=== PATIENT | female | born 1960 ===

== ENCOUNTER 2022-10-01 08:06 | Emergency (ER) | payer MEDICARE, MEDICAID, SELFPAY ==
--- NOTE | ~2022-10-01 | US_ITS ---
EXAMINATION: US ABDOMEN LIMITED CLINICAL INFORMATION: Abdominal pain. COMPARISON: The scan of the abdomen and pelvis from today. TECHNIQUE: Real-time imaging of the right upper quadrant abdominal viscera. FINDINGS: PANCREAS: Visualized portions unremarkable. LIVER: Mild diffuse increased echotexture without focal abnormality. GALLBLADDER: Unremarkable. COMMON BILE DUCT: Normal in caliber measuring 0.3 cm in diameter. RIGHT KIDNEY: 9.6 cm. Unremarkable. FREE FLUID: None. US/US abdomen limited IMPRESSION: Mild diffuse increased hepatic echotexture is nonspecific, but can be seen with mild steatosis. No other significant abnormality. Unremarkable gallbladder.
--- NOTE | ~2022-10-01 | CT_ITS ---
EXAMINATION: CT abdomen pelvis w IV con CLINICAL INFORMATION: Reason for Exam RUQ/epigastric pain COMPARISON: No prior CT available for comparison. TECHNIQUE: Multidetector volumetric imaging was performed from the superior aspect of the liver through the pubic symphysis 85 mL Omnipaque 350 injected Sagittal and coronal reformatted images were obtained on the technologist's workstation. This CT examination was performed using dose optimization techniques as appropriate, variously including the following: *Automated exposure control *Adjustment of mA and/or kV according to patient size (this includes techniques or standardized protocols for targeted exams where dose is matched to indication/reason for exam; i.e. extremities or head) *Use of iterative reconstruction technique DLP: 630 mGy-cm FINDINGS: LOWER THORAX: Included lung bases are clear. HEPATOBILIARY: No focal hepatic lesions. No biliary ductal dilatation. GALLBLADDER: There is a small gallstone, gallbladder otherwise unremarkable. SPLEEN: Spleen is normal in size. PANCREAS: No focal mass or ductal dilatation. STOMACH AND GASTROINTESTINAL TRACT: Stomach is grossly unremarkable. There is no bowel distention or thickening. No CT evidence of appendicitis. ADRENALS: No adrenal nodules. KIDNEYS/URETERS: Small simple cyst middle pole left kidney 1.2 cm, Bosniak class I, no follow-up is required, tiny hypodensity in the right renal cortex less than 5 mm, too small to characterize commonly found to be evolving cysts. Tiny calcific density in the left renal hilum could be a 3 mm nonobstructing stone versus vascular. There is no hydronephrosis, no evidence of renal obstruction. Ureters are normal in size on both sides. Perinephric fat are clear. URINARY BLADDER: Partially decompressed. PELVIC VISCERA: Unremarkable PERITONEUM: No free air or fluid. LYMPH NODES: No lymphadenopathy. VASCULAR:Abdominal aorta normal in size, no aneurysm found. BONES, ABDOMINAL WALL AND SOFT TISSUES: Age-appropriate changes of the spine and skeletal system, no destructive osteolytic or osteosclerotic bone lesion found CT/CT abdomen pelvis w IV con IMPRESSION: * No CT evidence of acute intra-abdominal process to explain patient's pain symptoms. * Tiny gallstones, CT scan has limited sensitivity evaluation of the gallbladder, if there is a clinical suspicion for possible cholecystitis, would recommend correlation with follow-up ultrasound or HIDA scan. * Tiny calcific density in the left renal hilum probably 3 mm nonobstructing stone versus vascular calcification.
[2022-10-01 08:15] VITALS: BP 179/85; PULSE 90; RESP 18; TEMP 36.9; O2SAT 98; BMI 29.5
--- NOTE | 2022-10-01 08:30 | ED_ITS ---
HPI - Abdominal Pain General Chief Complaint: Abdominal Pain Stated Complaint: Abd pain Time Seen by Provider: 10/01/22 08:16 Source: patient Mode of arrival: ambulatory Limitations: language barrier History of Present Illness HPI narrative: 62-year-old female past medical history of DM2, gastritis, fatty liver disease presents to the emergency department with complaints several months of right upper quadrant/epigastric pain radiating into the right flank with abdominal swelling and pain to palpation. She also reports dysuria, with bright yellow urine and no odor, and states she has not moved her bowels in 4 days, however; she endorses a history of chronic constipation and states she uses prune juice to a aid in bowel movements with good effect per patient. She states she last vomited 2 days ago with emesis described as undigested food, without any blood noted. States she has a history of acid reflux when she eats fatty foods and states she has been avoiding high fat foods to prevent symptoms. She was seen in the emergency department at [facility] on 09/09/22 for similar symptoms and states she had x-rays and an MRI of her abdomen. She was prescribed dicyclomine which she states has not aided in relieving her discomfort. She is unsure why she was prescribed this medication and is unsure of what diagnostic results were at [facility]. She has not taken any ecgm-iyi-[id number] medications for pain control this morning. She denies any melena, hematochezia, diarrhea, chest pain, shortness of breath, headaches, or vision changes. MD elicited complaint: abdominal pain Pertinent past history: constipation Onset (ago): week(s) ( ) Pain Consistency: constant Location: epigastric and RUQ Related Data Previous Rx's Medication Instructions Recorded naproxen 500 mg tablet,delayed 500 mg PO BID PRN pain #30 tabs 10/01/22 release Allergies Allergy/AdvReac Type Severity Reaction Status Date / Time No Known Allergies Allergy Verified 10/01/22 08:26 Review of Systems Review of Systems In addition to documented HPI above, the additional ROS was obtained: CONSTITUTIONAL: Denies fever, chills, weakness, fatigue, headache, night sweats, or weight loss EYES: Denies vision changes, eye pain, swelling, redness, foreign body, discharge ENT: Hearing normal. Denies sore throat, swallowing difficulty. congestion, ear pain, no hoarseness or CV: Denies chest pain. No edema, palpitations, or dyspnea on exertion RESP: Denies shortness of breath. Denies cough, wheezing, dyspnea. Denies smoke exposure GI: Denies nausea, vomiting, or diarrhea. No melena or hematochezia. : Denies irregular bleeding, urinary frequency, urinary incontinence/retention, urgency. Denies flank pain, hematuria MSK: Denies recent trauma, change in gait, myalgias, joint swelling or pain SKIN: Denies no lesions, rashes, or sores NEURO: Denies new numbness, tingling, dizziness, paresthesias or weakness. No loss of consciousness. Denies headache ENDOCRINE: Denies unexpected weight loss. Denies polyuria, polydipsia. No temperature intolerance HEME/ONC: Denies bleeding disorders, easy bruising, or lymphadenopathy PSYCH: Denies anxiety/panic, depression, SI/HI, or social issues. Yes all other systems are reviewed and are negative [facility] Past Medical History Attestation statement: The following information was validated with the patient. [facility] Narrative: Reviewed emergency department visit from [facility] on 09/09/2022. Patient presented with similar symptoms of abdominal pain worse with eating. VSS in ED per record. CBC and CMP unrevealing. Urinalysis negative for infection, EKG nonischemic, abdominal ultrasound showing fatty liver versus hepatocellular disease with no evidence cholelithiasis, acute cholecystitis, or biliary duct obstruction when compared to previous ultrasound done on 02/07/2022. CT abdomen pelvis with no acute abdominal or pelvic abnormality when compared to previous CT done on 02/16/2022. GI cocktail provided with viscous lidocaine and Maalox, and patient discharged with instructions to closely follow-up with PCP for repeat evaluation and further outpatient management. Referral provided to GI. Source: old records reviewed Social History Social History Alcohol intake: never Smoked in Last 30 Days: No Use of substances other than those prescribed or required for medical reasons: No Advance Directives: No Patient : No Physical Exam ED Vital Signs: Vital Signs - 24 hr 10/01/22 08:15 Temperature 98.4 F Pulse Rate 90 Respiratory Rate 18 Blood Pressure 179/85 H Pulse Oximetry 98 Oxygen Delivery Method Room Air BMI result Body Mass Index 29.5 Nursing notes and vital signs reviewed. GENERAL APPEARANCE: A&0 x 4, generally well appearing, no acute distress HENMT: Normal to inspection, atraumatic, face symmetrical. Normal external ears, nose, and oropharynx clear. EYE: PERRLA, EOM intact, structures appear normal NECK: Supple without lymphadenopathy. No stiffness or restricted ROM. CHEST: Normal to inspection HEART: Normal rate and regular rhythm, normal S1/S2, no M/R/G LUNGS: LS CTA, moving air well. Able to speak in complete sentences. No crackles, wheezes, or rhonchi auscultated ABDOMEN: Soft, nontender, nondistended, no guarding. Normal bowel sounds noted. BACK: No CVAT, no obvious deformity EXTREMITIES: Moving all extremities without difficulty. No cyanosis, clubbing, or edema. Normal capillary refill. NEUROLOGICAL: Alert and oriented, moving all 4 extremities with equal strength. CN not formally tested but appearing grossly intact. Observed to ambulate with normal gait. Cognition normal SKIN: Warm and dry without any lesions, rash, or visible sores PSYCH: Cooperative, normal affect, normal thought process Course Course Course Narrative: 0840: Request out to [facility] for pt's previous ED records for review. 0915: Mag level 1.4, plan for IV start and 2 gm mag replacement 0945: ED records for [facility] with diagnostics > 3 weeks ago, plan for repeat CT abd/pelvis for re-evaluation Medical Decision Making Medical Decision Making [facility] Narrative: 62-year-old female past medical history of fatty liver disease presents to the emergency department with complaints several weeks of right upper quadrant/ epigastric pain radiating into the right flank with abdominal swelling and pain to palpation. EKG normal sinus rhythm. Initial blood work significant for glucose 344 and magnesium 1.4 otherwise unremarkable. 2 g IV Mag given with repeat Mag 1.9. Repeat glucose 159. 5 mg p.o. oxycodone given with moderate relief of pain with follow-up dose of IV Toradol for continued complaints of pain with good effect. CT abdomen pelvis showing no evidence of acute intra- abdominal processes, small simple cyst in right kidney, and small gallstones with clinical suspicion for possible cholecystitis with recommendation of follow-up ultrasound. US consistent with hepatic steatosis. Patient is safe for discharge at this time with plan to manage discomfort with [id number]-[id number] naproxen, increased fluid intake, diet changes, and increased physical activity. HPI, PE, diagnostics, and plan discussed with patient and family with no unanswered questions at this time. Patient educated to return to the emergency department with new, worsening, or concerning emergent symptoms. Recommended to follow-up with her primary care provider for further treatment and management. *Refer to Course for additional information on consultations, diagnostic interpretation, consultations, emergency department stay, conversations with patient and family, shared decision making with patient, and more information on medical decision making* Lab Data MDM Lab Attestation statement: I reviewed the patient's lab results. 10/01/22 08:43 10/01/22 08:43 Labs: Lab Results 10/01/22 10/01/22 10/01/22 Range/Units 08:43 08:43 12:08 WBC 4.3 L (4.8-10.8) X10*3/uL RBC 4.25 (4.20-5.50) X10*6/uL Hgb 12.6 (12.0-16.0) g/dl Hct 37.2 (37.0-47.0) % MCV 87.5 (80.0-98.0) fL MCH 29.6 (27.0-33.0) pg MCHC 33.9 (31.0-35.0) g/dl RDW 12.2 (11.0-16.0) % Plt Count 230 (160-400) X10*3/uL MPV 10.3 (9.4-12.3) fL Immature Gran % (Auto) 0.2 (0.0-0.4) % Neut % (Auto) 64.1 (45-73) % Lymph % (Auto) 26.4 (20-40) % [place] % (Auto) 7.2 (2-11) % Eos % (Auto) 1.9 (0-4) % Baso % (Auto) 0.2 (0-2) % Lymph # (Auto) 1.1 L (1.2-4.9) X10*3/uL [place] # (Auto) 0.3 (0.1-1.2) X10*3/uL Eos # (Auto) 0.1 (0.0-0.4) X10*3/uL Baso # (Auto) 0.0 (0.0-0.2) X10*3/uL Abs Immat Gran (auto) 0.01 (0.00-0.03) X10*3/uL Absolute Neuts (auto) 2.8 (2.0-8.3) x10*3/uL Absolute Nucleated RBC 0.000 (0.0-0.012) X10*3/uL Nucleated RBC % (auto) 0.0 (0.0-0.2) /100WBC Sodium 139 (135-145) mmol/L Potassium 4.0 (3.3-5.1) mmol/L Chloride 100 (96-108) mmol/L Carbon Dioxide 27 (22-29) mmol/L Anion Gap 16 (12-20) BUN 15 (9-16) mg/dL Creatinine 0.76 (0.5-1.4) mg/dL Estim Creat Clear Calc 75.7 Estimated GFR > 60 POC Glucose 159 H (60-115) mg/dL Random Glucose 344 H (60-115) mg/dL Calcium 10.3 H (8.4-10.2) mg/dL Magnesium 1.4 L* (1.6-2.6) mg/dL Total Bilirubin 1.2 H (0.0-1.0) mg/dL AST 11 (5-31) U/L ALT 11 (0-31) U/L Alkaline Phosphatase 52 (39-117) U/L Total Protein 7.1 (6.5-8.0) g/dL Albumin 4.2 (3.5-5.0) g/dL Amylase 56 (28-100) U/L Lipase 49 (8-78) U/L 10/01/22 Range/Units 14:41 WBC (4.8-10.8) X10*3/uL RBC (4.20-5.50) X10*6/uL Hgb (12.0-16.0) g/dl Hct (37.0-47.0) % MCV (80.0-98.0) fL MCH (27.0-33.0) pg MCHC (31.0-35.0) g/dl RDW (11.0-16.0) % Plt Count (160-400) X10*3/uL MPV (9.4-12.3) fL Immature Gran % (Auto) (0.0-0.4) % Neut % (Auto) (45-73) % Lymph % (Auto) (20-40) % [place] % (Auto) (2-11) % Eos % (Auto) (0-4) % Baso % (Auto) (0-2) % Lymph # (Auto) (1.2-4.9) X10*3/uL [place] # (Auto) (0.1-1.2) X10*3/uL Eos # (Auto) (0.0-0.4) X10*3/uL Baso # (Auto) (0.0-0.2) X10*3/uL Abs Immat Gran (auto) (0.00-0.03) X10*3/uL Absolute Neuts (auto) (2.0-8.3) x10*3/uL Absolute Nucleated RBC (0.0-0.012) X10*3/uL Nucleated RBC % (auto) (0.0-0.2) /100WBC Sodium (135-145) mmol/L Potassium (3.3-5.1) mmol/L Chloride (96-108) mmol/L Carbon Dioxide (22-29) mmol/L Anion Gap (12-20) BUN (9-16) mg/dL Creatinine (0.5-1.4) mg/dL Estim Creat Clear Calc Estimated GFR POC Glucose (60-115) mg/dL Random Glucose (60-115) mg/dL Calcium (8.4-10.2) mg/dL Magnesium 1.9 (1.6-2.6) mg/dL Total Bilirubin (0.0-1.0) mg/dL AST (5-31) U/L ALT (0-31) U/L Alkaline Phosphatase (39-117) U/L Total Protein (6.5-8.0) g/dL Albumin (3.5-5.0) g/dL Amylase (28-100) U/L Lipase (8-78) U/L Independent Interpretation I performed an independent interpretation of an: EKG Interpretation: I have independently interpreted the EKG as NSR at 81 bpm, nonischemic with no previous EKG in system to compare Vent. Rate : 081 BPM ? ? Atrial Rate : 081 BPM ?? P-R Int : 142 ms? QRS Dur : 092 ms ? QT Int : 370 ms ? ? ? P-R-T Axes : 027 023 022 degrees ?? QTc Int : 429 ms ? Normal sinus rhythm Normal ECG No previous ECGs available Radiology Impression Discussion of test interpretation with radiology: I have reviewed the radiologist's reading. Radiologist Impression: Have independently reviewed the CT abdomen pelvis showing evidence gallstones with suspicion for cholecystitis with plan for follow-up ultrasound EXAMINATION: CT abdomen pelvis w IV con CLINICAL INFORMATION: Reason for Exam RUQ/epigastric pain COMPARISON: No prior CT available for comparison. TECHNIQUE: Multidetector volumetric imaging was performed from the superior aspect of the liver through the pubic symphysis 85 mL Omnipaque 350 injected Sagittal and coronal reformatted images were obtained on the technologist's workstation. ? This CT examination was performed using dose optimization techniques as appropriate, variously including the following: *Automated exposure control *Adjustment of mA and/or kV according to patient size (this includes techniques or standardized protocols for targeted exams where dose is matched to indication/reason for exam; i.e. extremities or head) *Use of iterative reconstruction technique DLP: 630 mGy-cm FINDINGS: LOWER THORAX: Included lung bases are clear. HEPATOBILIARY: No focal hepatic lesions. No biliary ductal dilatation. GALLBLADDER: There is a small gallstone, gallbladder otherwise unremarkable. SPLEEN: Spleen is normal in size. PANCREAS: No focal mass or ductal dilatation. STOMACH AND GASTROINTESTINAL TRACT: Stomach is grossly unremarkable. There is no bowel distention or thickening. No CT evidence of appendicitis. ADRENALS: No adrenal nodules. KIDNEYS/URETERS: Small simple cyst middle pole left kidney 1.2 cm, Bosniak class I, no follow-up is required, tiny hypodensity in the right renal cortex less than 5 mm, too small to characterize commonly found to be evolving cysts. Tiny calcific density in the left renal hilum could be a 3 mm nonobstructing stone versus vascular. There is no hydronephrosis, no evidence of renal obstruction. Ureters are normal in size on both sides. Perinephric fat are clear. URINARY BLADDER: Partially decompressed. PELVIC VISCERA: Unremarkable PERITONEUM: No free air or fluid. LYMPH NODES: No lymphadenopathy. VASCULAR:Abdominal aorta normal in size, no aneurysm found. BONES, ABDOMINAL WALL AND SOFT TISSUES: Age-appropriate changes of the spine and skeletal system, no destructive osteolytic or osteosclerotic bone lesion found CT/CT abdomen pelvis w IV con IMPRESSION: ? *? No CT evidence of acute intra-abdominal process to explain patient's pain symptoms. ? *? Tiny gallstones, CT scan has limited sensitivity evaluation of the gallbladder, if there is a clinical suspicion for possible cholecystitis, would recommend correlation with follow-up ultrasound or HIDA scan. ? *? Tiny calcific density in the left renal hilum probably 3 mm nonobstructing stone versus vascular calcification. ? Dictated By: Mikhail Graff MD Signed By: <Electronically signed by Mikhail Graff MD in [place]> 10/01/22 1315 DD/ 1206 TD/TT:? Senior Caregiver: I independently reviewed the ultrasound results could consistent with hepatic steatosis. EXAMINATION: US ABDOMEN LIMITED CLINICAL INFORMATION: Abdominal pain. COMPARISON: The scan of the abdomen and pelvis from today. TECHNIQUE: Real-time imaging of the right upper quadrant abdominal viscera. FINDINGS: PANCREAS: Visualized portions unremarkable. LIVER: Mild diffuse increased echotexture without focal abnormality. GALLBLADDER: Unremarkable. COMMON BILE DUCT: Normal in caliber measuring 0.3 cm in diameter. RIGHT KIDNEY: 9.6 cm. Unremarkable. FREE FLUID: None. US/US abdomen limited IMPRESSION: Mild diffuse increased hepatic echotexture is nonspecific, but can be seen with mild steatosis. No other significant abnormality. Unremarkable gallbladder. ? Dictated By: Prudencio Schmitz MD Signed By: <Electronically signed by Prudencio Schmitz MD in [place]> 10/01/22 1534 DD/ 1425 TD/TT:? Senior Caregiver: External Record Review External record reviewed: Outside ED record Medications Administered Discontinued Medications Generic Name Dose Route Start Last Admin Trade Name Freq PRN Reason Stop Dose Admin Al Hydroxide/Mg Hydroxide 15 ml 10/01/22 08:53 10/01/22 09:05 Magnesium Hydrox/Alum Hydrox 30 Ml Oral.Susp PO 10/01/22 08:54 15 ml ONCE ONE Administration Famotidine 20 mg 10/01/22 08:53 10/01/22 09:06 Famotidine 20 Mg Tablet PO 10/01/22 08:54 20 mg ONCE ONE Administration Magnesium Sulfate 2 gm in 50 mls @ 25 mls/hr 10/01/22 09:14 10/01/22 11:36 Magnesium Sulfate/H2o IV 10/01/22 11:13 Infused ONCE ONE Infusion Iohexol 100 ml 10/01/22 12:05 10/01/22 12:06 Iohexol 350 Mg/Ml 100 Ml Infus..Btl IV 10/01/22 12:06 85 ml ONCE ONE Administration Ketorolac Tromethamine 15 mg 10/01/22 14:07 10/01/22 14:15 Ketorolac Tromethamine 15 Mg/Ml Vial IVPUSH 10/01/22 14:08 15 mg ONCE ONE Administration Lidocaine HCl 15 ml 10/01/22 08:53 10/01/22 09:06 Lidocaine Hcl Viscous 2 % 15 Ml Solution MUCOUS MEM 10/01/22 08:54 15 ml ONCE ONE Administration Oxycodone HCl 5 mg 10/01/22 09:46 10/01/22 09:51 Oxycodone Hcl Immed Release 5 Mg Tablet PO 10/01/22 09:47 5 mg ONCE ONE Administration Discharge Plan Discharge Clinical Impression: Hepatic steatosis Patient Disposition: Home, Self-Care Instructions: Non-Alcoholic Fatty Liver Disease (ED) Additional Instructions: Your blood work is unremarkable. Your CT scan of the abdomen and pelvis is negative. Your ultrasound is consistent with hepatic steatosis (fatty liver disease). You are safe for discharge with plan to manage your discomfort with naproxen 2 times a day as needed and diet changes. It is recommended that you avoid sugars, alcohols, white bread/whitepasta/white rice, fried or salty foods and reduce your intake of beef/pork/deli meats. Increasing your physical activity can help improve your symptoms. Please return to the emergency department with new, worsening, or concerning emergent symptoms. Please follow-up with your primary care provider for further treatment and management. Prescriptions: New naproxen 500 mg tablet,delayed release (DR/EC) 500 mg PO BID PRN (Reason: pain) Qty: 30 0RF Referrals: [facility] Family Medicine [Provider Group] [facility] Primary Care, Mei [Provider Group] [facility] Primary Care,Alise [Provider Group] Print Language: Lithuanian
[2022-10-01 08:48] LABS: MANUAL DIFF FLAG NO
[2022-10-01 08:49] LABS: Basophils Percent Auto 0.2 % (0-2); Eosinophils Absolute Auto 0.1 X10*3/uL (0.0-0.4); Eosinophils Percent Auto 1.9 % (0-4); Hematocrit 37.2 % (37.0-47.0); Hemoglobin 12.6 g/dl (12.0-16.0); Imm Gran Abs Auto 0.01 X10*3/uL (0.00-0.03); Imm Gran Pct Auto 0.2 % (0.0-0.4); Lymphocytes Absolute Auto 1.1 X10*3/uL (1.2-4.9); Lymphocytes Percent Auto 26.4 % (20-40); Mean Corpuscular HGB Conc 33.9 g/dl (31.0-35.0); Mean Corpuscular Hemoglobin 29.6 pg (27.0-33.0); Mean Corpuscular Volume 87.5 fL (80.0-98.0); Mean Platelet Volume 10.3 fL (9.4-12.3); Monocytes Absolute Auto 0.3 X10*3/uL (0.1-1.2); Monocytes Percent Auto 7.2 % (2-11); Neutrophils Absolute Auto 2.8 x10*3/uL (2.0-8.3); Neutrophils Percent Auto 64.1 % (45-73); Platelet Count 230 X10*3/uL (160-400); Red Blood Count 4.25 X10*6/uL (4.20-5.50); Red Cell Distribution Width 12.2 % (11.0-16.0); White Blood Count 4.3 X10*3/uL (4.8-10.8)
--- NOTE | 2022-10-01 08:50 | ECG_ITS ---
Test Reason : epigastric pain Blood Pressure : / mmHG Vent. Rate : 081 BPM Atrial Rate : 081 BPM P-R Int : 142 ms QRS Dur : 092 ms QT Int : 370 ms P-R-T Axes : 027 023 022 degrees QTc Int : 429 ms Normal sinus rhythm Normal ECG No previous ECGs available Referred By: Sherine Garcia Electronically Signed By:FAROOQ AYOUB MD
[2022-10-01] MEDS: Magnesium Hydrox/Alum Hydrox 30 ML ORAL.SUSP 15 ML PO (09:05)
[2022-10-01] MEDS: Famotidine 20 MG TABLET PO (09:06)
[2022-10-01] MEDS: Lidocaine HCl Viscous 2 % 15 ML SOLUTION MUCOUS MEM (09:06)
[2022-10-01 09:15] LABS: Alanine Aminotransferase 11 U/L (0-31); Albumin Level 4.2 g/dL (3.5-5.0); Alkaline Phosphatase 52 U/L (39-117); Amylase 56 U/L (28-100); Anion Gap 16 (12-20); Aspartate Amino Transferase 11 U/L (5-31); Bilirubin Total 1.2 mg/dL (0.0-1.0); Blood Urea Nitrogen 15 mg/dL (9-16); Calcium 10.3 mg/dL (8.4-10.2); Carbon Dioxide 27 mmol/L (22-29); Chloride 100 mmol/L (96-108); Creatinine Clr Calc Pharmacy 75.7; Estimated Glomerular Filt Rate > 60; Glucose Random 344 mg/dL (60-115); Lipase 49 U/L (8-78); Magnesium 1.4 mg/dL (1.6-2.6); Sodium 139 mmol/L (135-145); Total Protein 7.1 g/dL (6.5-8.0)
--- NOTE | 2022-10-01 09:15 | PC.NURSE ---
medicated per emar, tolerating po without issues.
[2022-10-01] MEDS: oxyCODONE HCl Immed Release 5 MG TABLET PO (09:51)
[2022-10-01] MEDS: Magnesium Sulfate/H2O 2 GM/50 ML PIGGYBACK IV (09:51)
--- NOTE | 2022-10-01 09:56 | PC.NURSE ---
pt placed on ecg monitor d/t supplemental magnesium infusion, nsr at 60 bpm.
[2022-10-01] MEDS: iohexoL 350 MG/ML 100 ML INFUS..BTL IV (12:06)
[2022-10-01 12:12] LABS: Glucose, Whole Blood 159 mg/dL (60-115)
[2022-10-01] MEDS: Ketorolac Tromethamine 15 MG/ML VIAL IVPUSH (14:15)
[2022-10-01 15:05] LABS: Magnesium 1.9 mg/dL (1.6-2.6)
== END 2022-10-01 17:00 | disposition home or self-care (01) ==
PROVIDERS: Nurse Practitioner Family; Emergency Provider Emergency Medicine
DX: K76.0 Fatty (change of) liver, not elsewhere classified (principal); E11.9 Type 2 diabetes mellitus without complications; R10.11 Right upper quadrant pain; K59.00 Constipation, unspecified; Z79.899 Other long term (current) drug therapy
CPT/HCPCS: 36415; 74177; 76705; 80053; 82150; 82947; 83690; 83735; 85025; 93005; 96365; 96375; 99284; 99285; J1885; J3475; Q9967

== ENCOUNTER 2024-06-10 08:26 | Emergency (ER) | payer MEDICARE, MEDICAID, SELFPAY ==
--- NOTE | ~2024-06-10 | XR_ITS ---
EXAMINATION: XR KNEE, RIGHT CLINICAL INFORMATION: Pain and swelling COMPARISON: None available. TECHNIQUE: Four views of the right knee. FINDINGS: There is no evidence of fractures or dislocations. There is mild narrowing of medial compartment of right knee joint and there is soft tissue swelling seen in front of the patella consistent with prepatellar bursitis. XR/XR knee RT 3V IMPRESSION: Mild degenerative changes and patellar bursitis Electronically signed by: Belen Gardner MD 06/10/2024 12:38 PM EDT
[2024-06-10 08:44] VITALS: BP 131/69; PULSE 78; RESP 16; TEMP 36.3; O2SAT 98; BMI 28.3
--- NOTE | 2024-06-10 09:37 | ED.EXTPRO ---
HPI - Extremity Problem General Chief complaint: Extremity Problem Stated complaint: Swelling both knees Time Seen by Provider: 06/10/24 09:05 Source: patient and RN notes reviewed Mode of arrival: ambulatory Limitations: no limitations History of Present Illness ED Provider: Apryl Edwards PA-C HPI Narrative: This is a 64-year-old Kyrgyz-speaking female, with a history of diabetes, who presents emergency department with complaints of right knee swelling. Patient denies any trauma, injury or falls. She states that she noticed increased swelling on her right knee. She states that she has had difficulty walking up and down her stairs due to the pain. She states that she lives on the 3rd floor this requires her to walk up many steps. She has not taken any pain medications prior to arrival. Denies history of similar symptoms. No fevers or chills. No other complaints or concerns at this time. MD Complaint: extremity pain Pain Consistency: constant Location: right and lower extremity Quality: aching Radiation: none Relieving factors: nothing Exacerbating factors: nothing Associated symptoms: denies other symptoms Related Data Previous Rx's ?Medication ?Instructions ?Recorded naproxen 500 mg tablet,delayed 500 mg PO BID PRN pain #30 tabs 10/01/22 release ibuprofen 600 mg tablet 600 mg PO Q6H PRN pain #30 tabs 06/10/24 Allergies Allergy/AdvReac Type Severity Reaction Status Date / Time No Known Allergies Allergy Verified 06/10/24 08:47 Review of Systems Review of Systems: Yes all other systems are reviewed and are negative Constitutional: Constitutional: Reports as per [facility] Social History Social History Alcohol intake: never Advance Directives: No Advance Directives Information Provided: Yes Physical Exam Vital Signs: Vital Signs: Last Vital Signs Temp 98.7 F 06/10/24 13:55 Pulse 70 06/10/24 13:55 Resp 16 06/10/24 13:55 BP 118/55 L 06/10/24 13:55 Pulse Ox 99 06/10/24 13:55 O2 Del Method Room Air 06/10/24 13:55 BMI result Body Mass Index 28.3 Const: General: cooperative, comfortable and no acute distress Orientation/consciousness: patient oriented x3 Limitations: no limitations HEENT: Head: Yes normal to inspection, Yes normocephalic and Yes atraumatic Ears: hearing grossly normal bilaterally General nose exam: Normal external nose present Face and sinus: Yes normal facial exam Mouth: Normal oral and palatal mucosa present, oropharynx normal and moist mucous membranes Throat: Yes posterior oropharynx normal Eyes: General: appearance normal, both eyes and all related structures Eyelids: Yes eyelids normal Conjunctivae: conjunctivae normal Sclerae: sclerae normal Pupils: Equal, round and reactive pupils present EOM: EOMs intact bilaterally Neck: Neck: Yes normal visual inspection, Yes full ROM and Yes no lymphadenopathy Lymphatic: no lymphadenopathy noted Chest: Chest palpation & inspection: normal inspection of the chest Resp: Effort & Inspection: normal respiratory effort and able to speak in complete sentences Auscultation: clear to auscultation bilaterally, no crackles, no rales, no rhonchi and no wheezes Cardio: Rate: regular rate Rhythm: regular rhythm Heart sounds: S1 normal heart sound present and S2 normal heart sound present GI: Inspection: Yes normal to inspection Skin: General skin exam: no rashes or lesions noted Trauma: no lacerations or abrasions Wounds: no wounds Neuro: General: patient oriented x3 and moves all extremities Cranial nerves: Yes Equal, round and reactive pupils present Extrem: Other: Right knee with full range of motion, no erythema or warmth. On her prepatellar region, there is a soft mobile mass, consistent with bursitis. No pain with range of motion. General: Yes normal to inspection Right upper extremity: normal to inspection Left upper extremity: normal to inspection Right lower extremity: normal to inspection Left lower extremity: normal to inspection Course Reevaluation(s) Reevaluation #1: xrays revealing bursitis, discussed with pt, placed in girish wrap and given care instructions, ortho referral provided, given return precautions. Pt stable for d/c Medical Decision Making Medical Decision Making MDM Narrative: This is a 64-year-old female who presents emergency department with complaints of right knee swelling for the last 4 days. No trauma or injury. On examination, vital signs within normal limits. She is speaking full sentences. Knee with no signs of septic arthritis. She does have an area of swelling consistent with prepatellar bursitis. Will obtain x-rays to rule out any bony abnormalities. She has no calf tenderness. Differential Diagnosis Differential Diagnoses: The differential diagnosis associated with the presentation includes Bursitis, joint effusion, septic arthritis Radiology Impression Discussion of test interpretation with radiology: I have reviewed the radiologist's reading. Radiologist Impression: XR/XR knee RT 3V IMPRESSION: Mild degenerative changes and patellar bursitis Electronically signed by: Belen Gardner MD 06/10/2024 12:38 PM EDT RP Dictated By: Belen Gardner MD Discharge Plan Discharge Clinical Impression: Bursitis of right knee Patient Disposition: Home, Self-Care Instructions: Knee Bursitis (ED) Additional Instructions: You were seen in the emergency department due to pain in your right knee. You have a condition called knee bursitis, see additional instructions for further details about this condition. Taking anti-inflammatories like ibuprofen can help with your symptoms. It is very important that you rest, use Girish wrap, and elevate your knee. Ice can also help. Watch for any new or worsening symptoms including but not limited to increased swelling, redness, difficulty moving your knee. If any of these occur, please seek emergent care. You may follow-up with the sales account specialist as well for follow-up. It is also important that you follow-up with your primary care physician regarding this visit. Living on the 3rd floor walking up and down stairs can make your knee pain worse therefore please see if there is any other housing that can better assist you. Prescriptions: New ibuprofen 600 mg tablet 600 mg PO Q6H PRN (Reason: pain) Qty: 30 0RF No Action naproxen 500 mg tablet,delayed release (DR/EC) 500 mg PO BID PRN (Reason: pain) Qty: 30 0RF Referrals: [facility] [place] [facility] [Provider Group] Interventions: ED Discharge Assessment Last Done: 06/10/24 13:55 Discharge Date/Time: 06/10/24 13:56 Print Language: Kyrgyz
[2024-06-10 11:43] VITALS: BP 118/55; PULSE 70; RESP 16; TEMP 37.1; O2SAT 99
[2024-06-10 13:55] VITALS: BP 118/55; PULSE 70; RESP 16; TEMP 37.1; O2SAT 99
== END 2024-06-10 13:56 | disposition home or self-care (01) ==
PROVIDERS: Emergency Provider Student in an Organized Health Care Education/Training Program; PCP Physician Assistant
DX: M70.51 Other bursitis of knee, right knee (principal); R60.0 Localized edema; R26.2 Difficulty in walking, not elsewhere classified
CPT/HCPCS: 73562; 99283; 99284

== ENCOUNTER 2024-07-06 08:25 | Outpatient (AMB) | payer MEDICARE, MEDICAID, SELFPAY ==
--- NOTE | 2024-07-06 08:36 | A.OFFVIS_ITS ---
Intake Visit Reasons: BIT GATHERER- ED f/u Right Knee Bursitis Intake Note: Angela is a 64 year old female who presents to the office today for an evaluation of the lump in her Right Knee. Patient reports that she noticed the lump on her knee a week ago when she woke up in the morning. Pt denies any previous injury to her knee. Pt states she is still experiencing swelling in her knee. Patient has tried ibuprofen with no relief. She mentions that she is not able to kneel or using the stairs. Dinkey Operator Slag Required: Yes Dinkey Operator Slag Language: Luxembourger Allergies No Known Allergies Allergy (Verified 07/06/24 08:43) HPI HPI BIT GATHERER- ED f/u Right Knee Bursitis: Details: 64-year-old female, who is Luxembourger speaking, presents in the office today, as a new patient, for an evaluation of right knee bursitis. The patient presented to the ED on 06/10/24 with the complaint of right knee edema. She resides on the third floor and requires her to use stairs. She reported difficulty ambulating up and down the stairs. She denied any history of trauma, injury of falls in the right knee. X-rays of the right knee were obtained. She was prescribed ibuprofen 600 mg PO Q6H PRN to help with the pain and was recommended resting, icing, using an ROSEANNE wrap, and elevating her right knee. While in the office today, the patient states she noticed a lump on her right knee when she woke up in the morning a week ago. She reports she still has edema in her right knee. She mentions she is unable to kneel or use the stairs. She has tried OTC ibuprofen without relief. She denies any previous injury to her right knee. The patient has a history of diabetes mellitus. [facility] Social History (Updated 07/06/24 @ 08:46 by Venecia Asher) Alcohol intake: never Patient Tobacco Use Status: Never used Tobacco Review of Systems Const All systems reviewed & are unremarkable except as noted in HPI and below Physical Exam Const General: cooperative and no acute distress Orientation/consciousness: patient oriented x3 Resp Effort & Inspection: normal respiratory effort and able to speak in complete sentences Cardio Peripheral pulses: Peripheral pulses 2+ throughout Skin General skin exam: no rashes or lesions noted Neuro General: patient oriented x3 Extrem Other: Right knee: Moderate prepatellar bursitis noted on exam. Mild tenderness to palpation over the bursa. ROM is 0-110 degrees. NVI. Assessment & Plan Assessment & Plan (1) Prepatellar bursitis of right knee: Code(s): M70.41 - Prepatellar bursitis, right knee Category: Medical Plan Ms. Bo Prieto is a 64-year-old female, who is Luxembourger speaking, presents in the office today, as a new patient, for an evaluation of right knee bursitis. The patient presented to the ED on 06/10/24 with the complaint of right knee edema. She resides on the third floor and requires her to use stairs. She reported difficulty ambulating up and down the stairs. She denied any history of trauma, injury of falls in the right knee. X-rays of the right knee were obtained. She was prescribed ibuprofen 600 mg PO Q6H PRN to help with the pain and was recommended resting, icing, using an ROSEANNE wrap, and elevating her right knee. While in the office today, the patient states she noticed a lump on her right knee when she woke up in the morning a week ago. She reports she still has edema in her right knee. She mentions she is unable to kneel or use the stairs. She has tried OTC ibuprofen without relief. She denies any previous injury to her right knee. The patient has a history of diabetes mellitus. The patient was provided with an ROSEANNE wrap to apply gentle compression. I have sent a prescription for diclofenac 75 mg BID PRN for pain. Follow-up will be PRN, or sooner if needed. X-rays of the right knee, which were obtained while in the office today and were reviewed by me, Mai Trinh PA-C, revealed: Negative for any acute fracture of dislocation. X-rays of the right knee, obtained on 07/10/24, revealed: Mild degenerative changes and patellar bursitis. Orders: Orders XR knee LT 1V Today M25.569 - Pain in unspecified knee XR knee RT 2V Today M25.569 - Pain in unspecified knee Medications: New diclofenac sodium 75 mg PO BID PRN 60 tabs 3RF pain 30 days Patient Instructions: Scribed by Verito Collado medical staff services manager, for Mai Trinh PA-C on 07/06/24 at 8:56 am EST. Coding Level of Care Code New Pt Level 3 (87620) Diagnoses Prepatellar bursitis of right knee M70.41
== END 2024-07-06 08:58 | disposition home or self-care (01) ==
PROVIDERS: PCP Physician Assistant; Visit Provider Physician Assistant
DX: M70.41 Prepatellar bursitis, right knee (principal)
CPT/HCPCS: 99203

== ENCOUNTER 2024-07-06 09:30 | Outpatient (REF) | payer MEDICARE, MEDICAID, SELFPAY | END 2024-07-06 09:31 | disposition home or self-care (01) | LOC: HO.HOSX 09:30 | PROVIDERS: Visit Provider Physician Assistant | DX: M25.569 Pain in unspecified knee (principal); M70.41 Prepatellar bursitis, right knee | CPT/HCPCS: 73560; 99202 ==